=== PATIENT | male | born 1990 | race Caucasian/White ===

== ENCOUNTER 2016-09-01 23:47 | Emergency (ER) | payer OTHER ==
[2016-09-02 03:53] LABS: BASOPHIL# 0.1 X10e3 (0-0.3); BASOPHIL% 0.7 % (0-2.5); EOSINOPHIL# 0.2 X10e3 (0-0.7); EOSINOPHIL% 0.9 % (0.0-7.0); HEMATOCRIT 48.8 % (38.0-50.0); HEMOGLOBIN 16.4 gm/dL (13.0-16.0); LYMPHOCYTE# 4.3 X10e3 (1.0-3.5); LYMPHOCYTE% 24.8 % (17.0-45.0); MEAN CELL VOLUME 85.7 FL (83-96); MEAN CORPUSCULAR HEMOGLOBIN 28.8 PG (28-34); MEAN CORPUSCULAR HGB CONC 33.6 g/dL (30-36); MEAN PLATELET VOLUME 8.3 FL (6.5-11.5); MONOCYTE# 1.1 X10e3 (0-1.0); MONOCYTE% 6.5 % (3.0-12.0); NEUTROPHIL# 11.6 X10e3 (1.5-7.1); NEUTROPHIL% 67.1 % (40-75); PLATELET COUNT 216 X10e3 (140-420); RED CELL DISTRIBUTION WIDTH 13.8 % (11.0-15.5); WHITE BLOOD COUNT 17.3 X10e3 (4.0-10.5)
[2016-09-02 03:54] LABS: DIFF IND YES
[2016-09-02 03:57] LABS: AMPHETAMINE POS (NEG); BARBITURATES NEG (NEG); BENZODIAZEPINES NEG (NEG); COCAINE NEG (NEG); MARIJUANA POS (NEG); OPIATES NEG (NEG); TRICYCLIC ANTIDEPRESSANTS NEG (NEG); U METHADONE NEG (NEG)
[2016-09-02 04:03] LABS: BLOOD UREA NITROGEN 15 mg/dL (9-23); CALCIUM SERUM 9.3 mg/dL (8.4-10.2); CARBON DIOXIDE 26 mmol/L (22-31); CHLORIDE 101 mmol/L (100-111); GLOM FILT RATE Estimated 102.7 mL/min (>60); GLUCOSE FASTING 90 mg/dL (70-110); POTASSIUM 3.6 mmol/L (3.5-5.1); SODIUM 137 mmol/L (135-145)
[2016-09-02 04:09] LABS: ALCOHOL BLOOD <5 mg/dL (0)
[2016-09-02 04:48] LABS: PLATELET ESTIMATE NORMAL (NORMAL)
== END 2016-09-02 05:08 | disposition home or self-care (01) ==
LOC: CED 23:47
PROVIDERS: Emergency Medicine
DX: F15.151 Other stimulant abuse with stimulant-induced psychotic disorder with hallucinations (principal); F17.210 Nicotine dependence, cigarettes, uncomplicated; Z88.8 Allergy status to other drugs, medicaments and biological substances
CPT/HCPCS: 36415; 80048; 80307; 85025; 99283; G0480

== ENCOUNTER 2016-09-02 14:00 | Inpatient (IN) | payer OTHER ==
--- NOTE | ~2016-09-02 | DS ---
Unit #: [id number] #: [id number] Patient: ARTEMIO CASTILLO JR [id number] [place] [address] [id number] MR#: [id number] NAME: ARTEMIO CASTILLO JR ROOM: P264 Age: 26 Sex: M Admission Date: 09/02/2016 : 1990 Discharge Date: 09/05/2016 Attending Physician: Ras Amado M.D. Primary Care Physician: Primary Care Physician No DISCHARGE SUMMARY REASON FOR ADMISSION Mr. Lindsey is a 26-year-old man with a history of polysubstance dependence and a history of some psychotic symptoms, basically reported as auditory hallucinations or paranoia. He had no specific suicidal plan or intent, but had vague suicidal ideation and was admitted for further assessment. DIAGNOSTIC STUDIES LABORATORY RESULTS: Urine drug screen was positive for cannabis and amphetamines. Other labs were within normal limits. HOSPITAL COURSE The patient was admitted and placed on the psychosis precautions. He did not appear to be detoxing actively and was given risperidone 2 mg at bedtime empirically for what was believed to be a drug-induced psychotic disorder. The patient was irritable and uncooperative with inpatient care, demanding to discharge against medical advice on 2 different occasions. He rescinded the initial request, but later requested again, after he was evaluated by the nurse product support manager and electrician helper powerhouse, he was felt to be able to give a safe contract and was discharged AMA at his request. DISCHARGE DIAGNOSES AXIS I: Amphetamine-induced psychotic disorder. AXIS II: Antisocial traits. AXIS III: None acute. AXIS IV: AXIS V: DISCHARGE INSTRUCTIONS The patient was not placed on any medications at discharge because of his AMA. He was encouraged to go to [facility]. DISCHARGE MEDICATIONS None. CONDITION AT DISCHARGE Fair. PROGNOSIS Fair. DIET AND ACTIVITY Unit #: [id number] #: [id number] Patient: ARTEMIO CASTILLO JR Ad rafal. Dictated by... Ras Amado M.D. [facility]/octavial TD: 09/07/2016 12:54 JOB #: [id number] DISCHARGE SUMMARY Page 1 of 1 X Ras Amado MD DISCHARGE SUMMARY
--- NOTE | ~2016-09-02 | HP ---
Unit #: [id number] #: [id number] Patient: ARTEMIO CASTILLO JR [id number] [place] [address] [id number] MR#: [id number] NAME: ARTEMIO CASTILLO JR ROOM: P264 Age: 26 Sex: M Admission Date: 09/02/2016 : 1990 Attending Physician: Ras Amado M.D. Admitting Physician: Ras Amado M.D. Primary Care Physician: Primary Care Physician No HISTORY AND PHYSICAL HISTORY OF PRESENT ILLNESS The patient is a 24-year-old male admitted to [address] [place] [address] on 09/02/2016 for psychosis and drug abuse. PAST MEDICAL HISTORY The patient denies. PAST SURGICAL HISTORY Right arm. SOCIAL HISTORY The patient recently lost his job. He is homeless. He smokes one pack of cigarettes daily and has a history of polysubstance use including marijuana, heroin and methamphetamines. FAMILY MEDICAL HISTORY Noncontributory. ALLERGIES Ceclor. CURRENT MEDICATIONS The patient is not on any home medications. REVIEW OF SYSTEMS CONSTITUTIONAL: No fever or chills. HEENT: Denies any sore throat, ear pain or runny nose. CARDIOVASCULAR: Denies chest pain, irregular heart rhythm or palpitations. CHEST: Denies shortness of breath or cough. No hemoptysis. GASTROINTESTINAL: Denies nausea, vomiting, diarrhea or chronic constipation. ENDOCRINE: Denies history of increased thirst or urination. No recent significant weight loss or gain. GENITOURINARY: Denies dysuria, frequency, or hematuria. SKIN: Denies any rashes. HEMATOLOGIC: Denies history of increased bleeding or bruising. MUSCULOSKELETAL: Denies any hot, swollen joints. No generalized muscle pain. NEUROLOGIC: Denies problems with vision or speech. No frequent, severe headaches. No numbness, tingling or weakness in any extremities. Denies loss of bladder or bowel control. PHYSICAL EXAM Unit #: [id number] #: [id number] Patient: ARTEMIO CASTILLO JR GENERAL: He is awake, alert and oriented in no acute distress. VITAL SIGNS: Temperature 98.3, heart rate 112, respiration 17, blood pressure 119/80. HEIGHT: 5'8". WEIGHT: 142 pounds. SKIN: Warm and dry without rash or lesion. HEENT: Normocephalic. TMs not viewed. Oral and nasal passages clear. Conjunctivae clear. PERRLA. EOMs intact. NECK: Supple without lymphadenopathy or thyromegaly. HEART: Regular rate and rhythm without murmur. LUNGS: Clear. ABDOMEN: Soft, nontender. : Not done. EXTREMITIES: No evidence of cyanosis, clubbing or edema. Moves all without focal deficit. NEUROLOGICAL: Grossly within normal limits. Cranial Nerves: II: Visual forbes are intact. III, IV AND : Extraocular movements are intact. Pupils are equal, round and reactive to light. V: Facial sensation is grossly normal. VII: Facial movements and expression are normal. VIII: Auditory acuity grossly intact. IX, X: Uvula is midline. Phonation is normal. XI: Patient shrugs shoulders and turns head normally. XII: Tongue protrudes in the midline. Sensory and Motor Function: Sensory and motor sensation is grossly normal. Motor: moves all extremities well. IMPRESSION 1. Psychiatric admission. 2. Polysubstance abuse. 3. Nicotine dependence. RECOMMENDATIONS Psychiatric per psychiatrist. MEDICAL: No contraindication to participate in facility activities. MEDICAL PROGNOSIS Good. MEDICAL CONDITION Stable. Dictated by... Tommie Pollard/dorys TD: 09/03/2016 18:56 JOB #: [id number] Unit #: [id number] #: [id number] Patient: ARTEMIO CASTILLO JR HISTORY AND PHYSICAL Page 1 of 1 X MADHAVI HUNTER APRN HISTORY AND PHYSICAL
--- NOTE | ~2016-09-02 | PN ---
Unit #: [id number] #: [id number] Patient: RAMON CASTILLO [id number] [facility] [address] [place] [address] [id number] MR#: [id number] NAME: RAMON CASTILLO JR ROOM: 64 Age: 26 Sex: M Admission Date: 09/02/2016 : 1990 Attending Physician: Ras Amado M.D. Admitting Physician: Ras Amado M.D. Primary Care Physician: Primary Care Physician Deborah MALONE PROGRESS NOTES DATE 09/04/2016 DISCUSSION Ramon initially contacted the nurses requesting AMA discharge last night, but then rescinded it. He cannot explain to me why this was necessary. He continues to be rather vague in his appearance this morning and appears mildly paranoid. However, he denies suicidal or homicidal ideation. ASSESSMENT Amphetamine-induced psychotic disorder. PLAN Continue current dose of risperidone. Dictated by... Demian KauffmanH/bzanaly TD: 09/08/2016 09:00 JOB #: [id number] [facility] PROGRESS NOTES Page 1 of 1 X Ras Amado MD X PROGRESS NOTE
--- NOTE | ~2016-09-02 | PA ---
Unit #: [id number] #: [id number] Patient: ARTEMIO CASTILLO JR [id number] [place] [address] [id number] MR#: [id number] NAME: ARTEMIO CASTILLO JR ROOM: P264 Age: 26 Sex: M Admission Date: 09/02/2016 : 1990 Date of Assessment: 09/03/2016 Attending Physician: Ras Amado M.D. Admitting Physician: Ras Amado M.D. Primary Care Physician: Primary Care Physician No PSYCHIATRIC ASSESSMENT INFORMANTS The patient, partially reliable; OLOP, reliable. CHIEF COMPLAINT Paranoia. HISTORY OF PRESENT ILLNESS The patient is a 26-year-old man, who reports mild symptoms of paranoia, hearing voices, and believing people that are "sniffing him" as they walked by him. He reports he is temporarily homeless and admits to history of drug use of opiates, meth, and marijuana stating that he self medicates due to the voices. He had vague suicidal ideation with no specific plan or intent and was admitted for stabilization. PAST PSYCHIATRIC HISTORY No previous inpatient treatment. He does not take psychiatric medications. FAMILY PSYCHIATRIC HISTORY He reports a significant family history of substance abuse and vague history of bipolar disorder, schizophrenia, and ADD. SOCIAL HISTORY The patient denies any history of childhood abuse or neglect. He is a single heterosexual man, who is currently homeless and has previous charges for trafficking in controlled substances, and driving without a license. He recently lost his job and is temporarily homeless, occasionally staying with his sister. PAST MEDICAL HISTORY No chronic medical problems. MEDICATIONS None currently. ALLERGIES Cefaclor. SUBSTANCE USE HISTORY As noted above, the patient has been using stimulants to excess as well as heroin, cannabis, and other drugs. He was very vague about his long-term drug use history. Unit #: [id number] #: [id number] Patient: ARTEMIO CASTILLO JR MENTAL STATUS EXAMINATION The patient presented as a mildly disheveled man, who appeared older than his stated age. He was cooperative with the examination. Speech was spontaneous and easily understood. Musculoskeletal examination was calm. His mood was irritable with a congruent affect. He was alert and fully oriented. Memory and concentration were fair. Thought processes were general and logical, although he reported some vague paranoia and thoughts of self-harm with no specific plan or intent. Insight and judgment were fair. Fund of knowledge and abstraction were fair. ASSETS AND LIABILITIES The patient is familiar with local resources and presents voluntarily for treatment. Liabilities include unclear diagnosis. Ongoing drug use. Lack of current treatment. 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 AXIS II: No diagnosis, some antisocial traits noted. AXIS III: None acute. AXIS IV: AXIS V: PSYCHIATRIC PLAN The patient was admitted and placed on psychosis precautions. Risperidone 2 mg at bedtime will be empirically chosen for treatment and he will enroll in psychotherapy groups and activities with reality based focus. TREATMENT GOALS Resolution of psychosis, improvement in insight, and improvement in coping skills. DISCHARGE PLANNING Follow up with [facility]. ESTIMATED LENGTH OF STAY 5 days. Dictated by... Ras Amado M.D. SARA/carlos TD: 09/07/2016 14:32 JOB #: [id number] Unit #: [id number] #: [id number] Patient: ISHMAEL CASTILLOMIKHAIL Dunn JR PSYCHIATRIC ASSESSMENT Page 1 of 1 X Ras Amado MD X PSYCHIATRIC ASSESSMENT
== END 2016-09-05 15:05 | disposition home or self-care (01) | DRG 897 ==
LOC: P2L 16:35
PROC: HZ2ZZZZ Detoxification Services for Substance Abuse Treatment (ICD-10-PCS; principal; 2016-09-03)
DX: F15.259 Other stimulant dependence with stimulant-induced psychotic disorder, unspecified (principal); R45.851 Suicidal ideations; F60.2 Antisocial personality disorder